=== PATIENT | female | born 1980 | race Caucasian/White ===

== ENCOUNTER 2022-05-08 23:35 | Emergency (ER) | payer OTHER ==
[~2022-05-08] VITALS: Ht 165.1 cm; Wt 72.6 kg
[2022-05-09] MEDS ORDERED: KETO10TA2 PO (03:24)
[2022-05-09] MEDS ORDERED: CEPHALEXIN500 MG PO (03:24)
== END 2022-05-09 03:41 ==
LOC: ER 23:35
DX: S61.452A Open bite of left hand, initial encounter (principal); S71.152A Open bite, left thigh, initial encounter; W54.0XXA Bitten by dog, initial encounter; Y93.9 Activity, unspecified; Y92.019 Unspecified place in single-family (private) house as the place of occurrence of the external cause